=== PATIENT | female | born 1930 | race Caucasian/White ===

== ENCOUNTER 2017-06-29 12:18 | Day surgery (SDC) | payer OTHER, BC ==
[2017-06-22 10:32] VITALS: BMI 22.4
[~2017-06-29 12:18] MED LIST: ACETAMINOPHEN 325 MG TABLET (FP) PO PRN
[2017-06-29] MEDS ORDERED: CYCLOPENTOLATE HCL 1% OPHTH SOLN 2 ML BOTTLE ONE (12:59)
[2017-06-29] MEDS ORDERED: GENTAMICIN SULFATE 0.3% OPHTHALMIC (EYE DROPS) 5ML BOTTLE ONE (12:59)
[2017-06-29] MEDS ORDERED: PHENYLEPHRINE 2.5% OPHTH SOLN 15 ML BOTTLE ONE (12:59)
[2017-06-29] MEDS ORDERED: TROPICAMIDE 1% OPHTH SOLN 15 ML BOTTLE ONE (13:00)
[2017-06-29] MEDS: CYCLOPENTOLATE HCL 1% OPHTH SOLN 2 ML BOTTLE OP SCH ×5 (13:10→13:30)
[2017-06-29] MEDS: TROPICAMIDE 1% OPHTH SOLN 15 ML BOTTLE OP SCH ×5 (13:10→13:30)
[2017-06-29] MEDS: KETOROLAC TROMETHAMINE 0.5% 5 ML BOTTLE OPTHALMIC OP SCH ×5 (13:10→13:30)
[2017-06-29] MEDS: GENTAMICIN SULFATE 0.3% OPHTHALMIC (EYE DROPS) 5ML BOTTLE OP SCH ×2 (13:10→13:30)
[2017-06-29] MEDS: PHENYLEPHRINE 2.5% OPHTH SOLN 15 ML BOTTLE OP SCH ×5 (13:10→13:30)
[2017-06-29 13:11] VITALS: TEMP 98
[2017-06-29] MEDS ORDERED: ACETAMINOPHEN 325 MG TABLET (FP) ONE (13:17)
[2017-06-29] MEDS ORDERED: LIDOCAINE 1% P/F 10 MG/ML VIAL ONE (13:55)
[2017-06-29] MEDS ORDERED: POVIDONE-IODINE 5% OPHTHALMIC PREP 30 ML SOLUTION ONE (13:55)
[2017-06-29] MEDS ORDERED: TETRACAINE 0.5% OPHTH SOLN 2 ML BOTTLE ONE (14:07)
[2017-06-29] MEDS ORDERED: LIDOCAINE HCL 2% JELLY 10 ML CARTRIDGE ONE (14:09)
[2017-06-29 15:42] VITALS: BP 172/59; PULSE 60
== END 2017-06-29 16:00 | disposition home or self-care (01) ==
LOC: FASU 12:18
PROVIDERS: ATTEND Ophthalmology
PROC: 08RJ3JZ Replacement of Right Lens with Synthetic Substitute, Percutaneous Approach (ICD-10-PCS; principal; 2017-06-29)
DX: H26.9 Unspecified cataract (principal); Z53.09 Procedure and treatment not carried out because of other contraindication; R03.0 Elevated blood-pressure reading, without diagnosis of hypertension

== ENCOUNTER 2017-07-20 06:38 | Day surgery (SDC) | payer OTHER, BC ==
[2017-07-06 14:27] VITALS: BMI 22.4
[2017-07-20] MEDS ORDERED: LIDOCAINE 1% P/F 10 MG/ML VIAL ONE (07:13)
[2017-07-20] MEDS ORDERED: BACITRACIN/POLYMYXIN OPH OINT 3.5 GM TUBE ONE (07:13)
[2017-07-20] MEDS ORDERED: LIDOCAINE HCL/PF 2% SDV 5ML VIAL ONE ×2 (07:14→08:28)
[2017-07-20] MEDS ORDERED: TETRACAINE 0.5% OPHTH SOLN 2 ML BOTTLE ONE (07:14)
[2017-07-20] MEDS ORDERED: ACETYLCHOLINE 1:100 INTRA-OCUL 20 MG/2 ML KIT ONE (07:14)
[2017-07-20] MEDS ORDERED: BUPIVACAINE HCL/PF 0.5% (5MG/ML) 10 ML VIAL ONE (07:14)
[2017-07-20] MEDS ORDERED: BETAXOLOL HCL 0.25% OPHTHALMIC 10 ML DROPSBTL ONE (07:14)
[2017-07-20] MEDS ORDERED: NEO/POLYMYX B SULF/DEXAMETH OPHTHALMIC 5ML BOTTLE ONE (07:15)
[2017-07-20] MEDS: KETOROLAC TROMETHAMINE 0.5% 5 ML BOTTLE OPTHALMIC ONE ×5 (07:20→07:40)
[2017-07-20] MEDS: TROPICAMIDE 1% OPHTH SOLN 15 ML BOTTLE ONE ×5 (07:20→07:40)
[2017-07-20] MEDS: CYCLOPENTOLATE HCL 1% OPHTH SOLN 2 ML BOTTLE ONE ×5 (07:20→07:40)
[2017-07-20] MEDS: GENTAMICIN SULFATE 0.3% OPHTHALMIC (EYE DROPS) 5ML BOTTLE ONE ×2 (07:20→07:40)
[2017-07-20] MEDS ORDERED: POVIDONE-IODINE 5% OPHTHALMIC PREP 30 ML SOLUTION ONE (07:20)
[2017-07-20] MEDS: PHENYLEPHRINE 2.5% OPHTH SOLN 15 ML BOTTLE ONE ×5 (07:20→07:40)
[2017-07-20] MEDS ORDERED: ePHEDrine SULFATE 50 MG/1 ML AMPULE ONE (07:23)
[2017-07-20] MEDS ORDERED: SUCCINYLCHOLINE CHLORIDE 200 MG/10 ML VIAL ONE (07:23)
[2017-07-20] MEDS ORDERED: PROPOFOL 20 ML ONE ×2 (08:13→08:28)
[2017-07-20] MEDS ORDERED: MIDAZOLAM HCL 2 MG/2 ML SINGLE DOSE VIAL ONE (08:14)
[2017-07-20] MEDS ORDERED: ONDANSETRON 4 MG/2 ML VIAL IVPUSH PRN (09:11)
[2017-07-20] MEDS ORDERED: LACTATED RINGERS SOLUTION 1,000 ML IV SCH (09:15)
[2017-07-20 09:28] VITALS: TEMP 97.6
[2017-07-20] MEDS ORDERED: ACETAMINOPHEN 325 MG TABLET (FP) PO PRN ×2 (09:35→09:44)
[2017-07-20 09:48] VITALS: BP 168/53; PULSE 82
--- NOTE | 2017-07-20 15:47 | OP ---
DATE OF OPERATION: 07/20/2017 AGE: [id number] years old. SEX: Female. PREOPERATIVE DIAGNOSIS: Cataract, right eye. POSTOPERATIVE DIAGNOSIS: Cataract, right eye. PROCEDURE: Cataract extraction via phacoemulsification and insertion of posterior chamber lens implant, right eye. ANESTHESIA: Regional with sedation. SURGEON: René Ram MD [employer] CLERK: René Ram MD SPECIMENS: None. COMPLICATIONS: None. ESTIMATED BLOOD LOSS: Less than 1 mL. DESCRIPTION OF PROCEDURE: The patient was identified in the holding area. After all risks, benefits, and alternatives were explained to the patient, informed consent was obtained. The right eye was marked with a marking pen. The patient then entered the operating room on an eye stretcher. After a formal timeout was performed, a 3-mL injection of equal parts of 2% lidocaine with epinephrine and 0.5% Marcaine was given around the right eye. The right eye was then prepped and draped in the usual sterile fashion. An eyelid speculum was placed beneath the eyelids of the right eye. A superotemporal paracentesis incision was created using a 15-degree blade. Viscoelastic was injected into the anterior chamber. A 2.4-mm keratome blade was then used to make an inferotemporal incision. A 360-degree, continuous curvilinear capsulorrhexis was then created using bent cystotome and Utrata forceps. Hydrodissection was performed using balanced saline solution on a cannula. Phacoemulsification was introduced to disassemble and remove the nucleus in its entirety. Irrigation/aspiration was then used to remove any remaining cortical material from the eye. The capsular bag was then refilled using viscoelastic. An Tyron model SN60WF with a power of 22.5 diopters, serial number [id number] was inspected and found to be defect free and injected into the capsular bag. Irrigation/aspiration was used to remove any remaining viscoelastic from the eye. The anterior chamber was reformed using balanced saline solution. Intracameral injections of Miochol and Miostat were then administered to the right eye, and the pupil came down and was round. All wounds were hydrated with balanced saline solution and noted to be watertight. The eye had an adequate pressure. The anterior chamber was deep. The lens was perfectly centered in the capsular bag. Topical antibiotic eye drops and ointment were then administered to the right eye. The eyelid speculum was removed from the right eye. The right eye was patched and shielded. The patient tolerated the procedure well and left the operating room in stable condition to follow up in the eye clinic tomorrow morning at 9:00. RENÉ RAM M.D. [id number]
== END 2017-07-20 10:00 | disposition home or self-care (01) ==
LOC: FASU 06:38
PROVIDERS: ATTEND Ophthalmology
PROC: 08RJ3JZ Replacement of Right Lens with Synthetic Substitute, Percutaneous Approach (ICD-10-PCS; principal; 2017-07-20 08:00)
DX: H26.8 Other specified cataract (principal); I10 Essential (primary) hypertension; E11.9 Type 2 diabetes mellitus without complications; E78.00 Pure hypercholesterolemia, unspecified; G40.909 Epilepsy, unspecified, not intractable, without status epilepticus

== ENCOUNTER 2017-08-31 08:55 | Day surgery (SDC) | payer OTHER, BC ==
[2017-08-17 13:56] VITALS: BMI 23.4
[2017-08-31] MEDS ORDERED: PHENYLEPHRINE 2.5% OPHTH SOLN 15 ML BOTTLE ONE (09:08)
[2017-08-31] MEDS ORDERED: GENTAMICIN SULFATE 0.3% OPHTHALMIC (EYE DROPS) 5ML BOTTLE ONE (09:08)
[2017-08-31] MEDS ORDERED: TROPICAMIDE 1% OPHTH SOLN 15 ML BOTTLE ONE (09:08)
[2017-08-31] MEDS ORDERED: KETOROLAC TROMETHAMINE 0.5% 5 ML BOTTLE OPTHALMIC ONE (09:08)
[2017-08-31] MEDS ORDERED: CYCLOPENTOLATE HCL 1% OPHTH SOLN 2 ML BOTTLE ONE (09:08)
[2017-08-31] MEDS ORDERED: ACETAMINOPHEN 325 MG TABLET (FP) PO PRN (09:58)
[2017-08-31] MEDS ORDERED: LIDOCAINE HCL/EPINEPHRINE/PF 20 ML VIAL ONE (11:16)
[2017-08-31] MEDS ORDERED: BACITRACIN/POLYMYXIN OPH OINT 3.5 GM TUBE ONE (11:16)
[2017-08-31] MEDS ORDERED: BETAXOLOL HCL 0.25% OPHTHALMIC 10 ML DROPSBTL ONE (11:16)
[2017-08-31] MEDS ORDERED: BUPIVACAINE HCL/PF 0.5% (5MG/ML) 10 ML VIAL ONE (11:16)
[2017-08-31] MEDS ORDERED: EPINEPHrine/PF 1 MG/1 ML (1:1,000) AMPULE ONE (11:17)
[2017-08-31] MEDS ORDERED: NEO/POLYMYX B SULF/DEXAMETH OPHTHALMIC 5ML BOTTLE ONE (11:17)
[2017-08-31] MEDS ORDERED: TETRACAINE 0.5% OPHTH SOLN 2 ML BOTTLE ONE (11:17)
[2017-08-31] MEDS ORDERED: ACETYLCHOLINE 1:100 INTRA-OCUL 20 MG/2 ML KIT ONE (11:17)
[2017-08-31] MEDS ORDERED: MIDAZOLAM HCL 2 MG/2 ML SINGLE DOSE VIAL ONE (11:23)
[2017-08-31] MEDS ORDERED: POVIDONE-IODINE 5% OPHTHALMIC PREP 30 ML SOLUTION ONE (11:25)
[2017-08-31] MEDS ORDERED: TETRACAINE 0.5% OPHTH SOLN 2 ML BOTTLE OS ONE (11:40)
[2017-08-31] MEDS ORDERED: LIDOCAINE HCL 2% JELLY 10 ML CARTRIDGE TP ONE (11:41)
[2017-08-31] MEDS ORDERED: LIDOCAINE 2%/EPINEPHRINE 1:100000 (50 ML MD VIAL) INF ONE (11:42)
[2017-08-31] MEDS ORDERED: BUPIVACAINE HCL/PF 0.5% (5MG/ML) 10 ML VIAL IJ ONE (11:42)
[2017-08-31] MEDS ORDERED: CHONDROITIN SU A/HYALUR SOD 1 KIT IO ONE ×3 (11:52)
[2017-08-31] MEDS ORDERED: ACETYLCHOLINE 1:100 INTRA-OCUL 20 MG/2 ML KIT IO ONE (11:52)
[2017-08-31] MEDS ORDERED: BETAXOLOL HCL 0.25% OPHTHALMIC 10 ML DROPSBTL OS ONE (12:35)
[2017-08-31] MEDS ORDERED: BACITRACIN/POLYMYXIN OPH OINT 3.5 GM TUBE OS ONE (12:35)
[2017-08-31] MEDS ORDERED: NEO/POLYMYX B SULF/DEXAMETH OPHTHALMIC 5ML BOTTLE OS ONE (12:35)
[2017-08-31 13:05] VITALS: BP 165/71; PULSE 78
[2017-08-31 13:27] VITALS: TEMP 98
--- NOTE | 2017-09-02 10:32 | OP ---
DATE OF OPERATION: 08/31/2017 TITLE OF PROCEDURE: Planned extracapsular cataract extraction, phacoemulsification, insertion of posterior chamber lens implant, left eye. SURGEON: René Ram M.D. DATA ANALYSIS MANAGER: René Ram M.D. ANESTHESIA: Local standby. ANESTHESIOLOGIST: Saúl Lee M.D. COMPLICATIONS: None. PREOPERATIVE DIAGNOSIS: Mature cataract, left eye. POSTOPERATIVE DIAGNOSIS: Mature cataract, left eye. FINDINGS AND THE PROCEDURE: After successful peribulbar anesthesia was done in the left eye in the operating room, the patient was prepped and draped in the usual manner to expose the left eye. A lid speculum was inserted after the Tegaderm strips were placed and the microscope was brought into position over the left eye. A superior fornix-based flap was then fashioned for 12 mm. forceps and hemostasis achieved with Wet-Field cautery. A limbal groove was fashioned for 3 mm with the crescent blade and dissected anteriorly until clear cornea. Then, a 3-mm blade was entered into the anterior chamber. Then, under Viscoat, a 360-degree capsulotomy was performed and removed from the eye. Phacoemulsification of the entire nucleus was then done in approximately 2 minutes' time, followed by irrigation/aspiration of all cortical material the entire posterior capsule and red reflex present. Provisc was injected into the posterior chamber to deepen the posterior capsule. Then, the implant was inspected carefully through the microscope and found to be free of defects. . It was folded and placed in the Provisc-filled cartridge. The cartridge was placed in the injector. Then, the implant was injected into the capsular bag, posterior chamber, which had been prefilled with Provisc to deepen it and the inferior haptic in the inferior capsular bag and the superior haptic in the superior capsular bag and rotated in the horizontal position with the Sinskey hook. The Provisc was aspirated out and replaced with Miochol, Miostat and BSS. The wound was closed with a single interrupted 10-0 Ethilon suture and tested for leakage and none was found. Topical Betoptic S and Maxitrol ophthalmic and then the conjunctival tenon flap was reapproximated. At this point, the implant was fixated in the capsular bag centrally located with the round pupil intact, posterior capsule and a red reflex present. As I mentioned, Provisc was aspirated out completely and replaced with Miochol, Miostat and BSS. Topical Maxitrol and Betoptic S solutions were placed, as was bacitracin ophthalmic ointment. Then, the Tegaderm strips and the speculum were removed from the lid. The lid was closed and a patch and shield placed on the eye. The patient was then discharged from the operating room to the recovery area in good condition having tolerated the procedure well. RENÉ RAM M.D. [id number]
== END 2017-08-31 13:32 | disposition home or self-care (01) ==
LOC: FASU 08:55
PROVIDERS: ATTEND Ophthalmology
PROC: 08RK3JZ Replacement of Left Lens with Synthetic Substitute, Percutaneous Approach (ICD-10-PCS; principal; 2017-08-31 11:52)
DX: H25.89 Other age-related cataract (principal)
CPT/HCPCS: 82962